=== PATIENT | female | born 1955 | race Caucasian/White ===

== ENCOUNTER 2022-02-02 11:38 | Inpatient (IN) | payer OTHER ==
[~2022-02-02] VITALS: Ht 157.5 cm; Wt 61.2 kg
[2022-02-02 11:38] VITALS: BP_SYST 146
[2022-02-02 12:06] LABS: BASOPHILS # (AUTO) 0.1 K/uL (0.0-0.2); BASOPHILS % (AUTO) 0.9 % (0.0-2.0); EOSINOPHILS % (AUTO) 0.2 % (0.0-4.0); HEMATOCRIT 36.2 % (36-48); HEMOGLOBIN 12.5 g/dL (12.0-16.0); LYMPHOCYTES # (AUTO) 0.7 K/uL (1.0-5.5); LYMPHOCYTES % (AUTO) 4.2 % (20.5-51.5); MEAN CORPUSCULAR HEMOGLOBIN 30 pg (27-31); MEAN CORPUSCULAR HGB CONC 35 % (32-36); MEAN CORPUSCULAR VOLUME 86 fL (79.0-98.0); MONOCYTES # (AUTO) 0.7 K/uL (0.0-1.0); MONOCYTES % (AUTO) 4.3 % (1.7-9.3); NEUTROPHILS # (AUTO) 14.8 K/uL (1.8-7.7); NEUTROPHILS % (AUTO) 90.4 % (40.0-70.0); PLATELET COUNT (AUTO) 169 K/uL (130-430); RED BLOOD CELL COUNT(AUTO) 4.21 MIL/uL (4.2-6.2); RED CELL DISTRIBUTION WIDTH 21.6 % (9.0-15.0); WHITE BLOOD COUNT (AUTO) 16.3 K/uL (4.8-10.8)
[2022-02-02 12:22] LABS: CALCIUM 8.1 mg/dL (8.4-11.0); CREATININE 0.62 mg/dL (0.55-1.30); POTASSIUM 3.5 mmol/L (3.5-5.1)
[2022-02-02 12:24] LABS: INR 1.5 (0.8-1.2); PROTHROMBIN TIME 15.2 SECS (9.5-12.5)
[2022-02-02 13:07] LABS: BILIRUBIN,URINE NEGATIVE (NEGATIVE); BLOOD, URINE 3+ (NEGATIVE); COLOR,URINE YELLOW (YELLOW); GLUCOSE,URINE NEGATIVE (NEGATIVE); KETONES,URINE NEGATIVE (NEGATIVE); LEUKOCYTE ESTERASE ,URINE 2+ (NEGATIVE); NITRITE, URINE POSITIVE (NEGATIVE); PROTEIN URINE NEGATIVE (NEGATIVE)
[2022-02-02 13:11] LABS: CLARITY/URINE HAZY (CLEAR)
[2022-02-02] MEDS ORDERED: IBUPROFEN 800 MG TABLET PO ONE (13:45)
[2022-02-02] MEDS ORDERED: PIPERACILLIN/TAZO 4.5GM/DEX-IS 100 ML IV SCH ×2 (13:45→13:46)
[2022-02-02 14:06] LABS: BACTERIA,URINE MANY /HPF (None Seen)
[2022-02-02] MEDS ORDERED: KCL 20 mEq in D5NS 1000 mL 1,000 ML IV SCH (14:15)
[2022-02-02] MEDS ORDERED: ACET325T53 PO (15:43)
[2022-02-02] MEDS ORDERED: FLUO60TA PO (15:47)
[2022-02-02] MEDS ORDERED: FLUO20CA42 PO (15:47)
[2022-02-02] MEDS ORDERED: GABA300S PO (15:48)
[2022-02-02] MEDS ORDERED: LEVE500T9 PO (15:49)
[2022-02-02] MEDS ORDERED: FURO-149 PO (15:49)
[2022-02-02] MEDS ORDERED: SYN50 PO (15:52)
[2022-02-02] MEDS ORDERED: MOM PO (15:53)
[2022-02-02] MEDS ORDERED: PANT40SU2 PO (15:54)
[2022-02-02] MEDS ORDERED: RIFA550T5 PO (15:58)
[2022-02-02] MEDS ORDERED: SPIR50TA PO (16:04)
[2022-02-02 17:43] VITALS: BP_SYST 102
[2022-02-02 17:48] VITALS: BP_SYST 102
[2022-02-02] MEDS ORDERED: MILK OF MAGNESIA 30 ML UDC PO PRN (18:15)
[2022-02-02] MEDS ORDERED: ONDANSETRON HCL 4 MG/2 ML VIAL IVP PRN (18:30)
[2022-02-02] MEDS ORDERED: ACETAMINOPHEN 325 MG TABLET PO PRN (18:30)
[2022-02-02] MEDS: KCL 20 mEq in D5NS 1000 mL 1,000 ML IV SCH (20:08)
[2022-02-02] MEDS: cefTRIAXone 1 GM in D5W 50 ML IV SCH (20:08)
[2022-02-02 21:19] VITALS: BP_SYST 105
[2022-02-02] MEDS: RIFAXIMIN 550 MG TABLET PO SCH (21:23)
[2022-02-02] MEDS: levETIRAcetam 500 MG TABLET PO SCH (21:24)
[2022-02-02] MEDS: traMADol HCL HCL 50 MG TABLET (ULTRAM) PO PRN (21:24)
[2022-02-03 00:52] VITALS: BP_SYST 109
[2022-02-03] MEDS: LEVOTHYROXINE SODIUM 0.05 MG TABLET PO SCH (06:20)
[2022-02-03 06:41] LABS: HEMATOCRIT 33.9 % (36-48); HEMOGLOBIN 11.4 g/dL (12.0-16.0); MEAN CORPUSCULAR HEMOGLOBIN 30 pg (27-31); MEAN CORPUSCULAR HGB CONC 34 % (32-36); MEAN CORPUSCULAR VOLUME 87 fL (79.0-98.0); PLATELET COUNT (AUTO) 144 K/uL (130-430); RED BLOOD CELL COUNT(AUTO) 3.87 MIL/uL (4.2-6.2); RED CELL DISTRIBUTION WIDTH 22.5 % (9.0-15.0); WHITE BLOOD COUNT (AUTO) 12.2 K/uL (4.8-10.8)
[2022-02-03 07:10] LABS: CREATININE 0.67 mg/dL (0.55-1.30)
[2022-02-03 08:16] VITALS: BP_SYST 131
[2022-02-03] MEDS ORDERED: NON-FORMULARY MEDICATION (Gabapentin 300 MG) PO SCH (09:00)
[2022-02-03 12:00] VITALS: BP_SYST 130
[2022-02-03] MEDS: GABAPENTIN 300 MG CAPSULE PO SCH (13:03)
[2022-02-03] MEDS: FLUoxetine HCL 20 MG CAPSULE (PROzac) PO SCH (13:03)
[2022-02-03] MEDS: FUROSEMIDE 40 MG TABLET PO SCH (13:03)
[2022-02-03] MEDS: RIFAXIMIN 550 MG TABLET PO SCH ×2 (13:03→21:13)
[2022-02-03] MEDS: LANSOPRAZOLE 30 MG CAPSULE.DR PO SCH (13:04)
[2022-02-03] MEDS: levETIRAcetam 500 MG TABLET PO SCH ×2 (13:04→21:13)
[2022-02-03] MEDS: SPIRONOLACTONE 50 MG TABLET (ALDACTONE) PO SCH (13:04)
[2022-02-03] MEDS: KCL 20 mEq in D5NS 1000 mL 1,000 ML IV SCH (13:08)
[2022-02-03 14:36] LABS: LYMPHOCYTES % (MANUAL) 6 % (20-46)
[2022-02-03 14:37] LABS: BASOPHILS % (MANUAL) 0 % (0-2); EOSINOPHILS % (MANUAL) 4 % (0-7); MONOCYTES % (MANUAL) 4 % (0-11)
[2022-02-03] MEDS ORDERED: POTASSIUM CHLORIDE 20 MEQ TAB.PRT.SR PO ONE (15:30)
[2022-02-03 17:36] VITALS: BP_SYST 128
[2022-02-03 21:00] VITALS: BP_SYST 124
[2022-02-03] MEDS: cefTRIAXone 1 GM in D5W 50 ML IV SCH (21:13)
[2022-02-03] MEDS: traMADol HCL HCL 50 MG TABLET (ULTRAM) PO PRN (22:42)
[2022-02-04] VITALS (13 sets, daily range): BP systolic 92–130
[2022-02-04] MEDS: KCL 20 mEq in D5NS 1000 mL 1,000 ML IV SCH ×2 (04:08→21:12)
[2022-02-04] MEDS: LEVOTHYROXINE SODIUM 0.05 MG TABLET PO SCH (06:20)
[2022-02-04 06:38] LABS: BASOPHILS # (AUTO) 0.2 K/uL (0.0-0.2); BASOPHILS % (AUTO) 0.9 % (0.0-2.0); EOSINOPHILS % (AUTO) 0.1 % (0.0-4.0); HEMATOCRIT 36.8 % (36-48); HEMOGLOBIN 12.4 g/dL (12.0-16.0); LYMPHOCYTES % (AUTO) 4.9 % (20.5-51.5); MEAN CORPUSCULAR HEMOGLOBIN 30 pg (27-31); MEAN CORPUSCULAR HGB CONC 34 % (32-36); MEAN CORPUSCULAR VOLUME 88 fL (79.0-98.0); MONOCYTES # (AUTO) 0.8 K/uL (0.0-1.0); MONOCYTES % (AUTO) 4.1 % (1.7-9.3); NEUTROPHILS # (AUTO) 17.5 K/uL (1.8-7.7); PLATELET COUNT (AUTO) 161 K/uL (130-430); RED CELL DISTRIBUTION WIDTH 22.3 % (9.0-15.0); WHITE BLOOD COUNT (AUTO) 19.5 K/uL (4.8-10.8)
[2022-02-04 07:19] LABS: CALCIUM 7.9 mg/dL (8.4-11.0); CREATININE 0.76 mg/dL (0.55-1.30); PHOSPHORUS 2.7 mg/dL (2.7-4.5)
[2022-02-04] MEDS: GABAPENTIN 300 MG CAPSULE PO SCH (08:43)
[2022-02-04] MEDS: LANSOPRAZOLE 30 MG CAPSULE.DR PO SCH (08:43)
[2022-02-04] MEDS: levETIRAcetam 500 MG TABLET PO SCH ×2 (08:43→21:13)
[2022-02-04] MEDS: SPIRONOLACTONE 50 MG TABLET (ALDACTONE) PO SCH (08:44)
[2022-02-04] MEDS: FUROSEMIDE 40 MG TABLET PO SCH (08:44)
[2022-02-04] MEDS: RIFAXIMIN 550 MG TABLET PO SCH ×2 (08:44→21:13)
[2022-02-04] MEDS: FLUoxetine HCL 20 MG CAPSULE (PROzac) PO SCH (08:59)
[2022-02-04] MEDS: traMADol HCL HCL 50 MG TABLET (ULTRAM) PO PRN ×2 (09:00→17:10)
[2022-02-04] MEDS: ALBUMIN HUMAN 25% 100 ML IV SCH ×3 (13:36→20:10)
[2022-02-04] MEDS ORDERED: *TPN PER PHARMACY XX PRN (14:00)
[2022-02-04] MEDS ORDERED: LEVOTHYROXINE SODIUM 0.05 MG TABLET PO SCH (15:52)
[2022-02-04] MEDS: PIPERACILLIN/TAZO 3.375/DEX-IS 50 ML IV SCH ×2 (16:10→21:13)
[2022-02-04] MEDS: VANCOMYCIN HCL 1,000 MG in NS 250 ML IV SCH (16:53)
[2022-02-04] MEDS ORDERED: MORPHINE 2 MG/ML INJ. SYRINGE IVP PRN (20:15)
[2022-02-04] MEDS ORDERED: DEXMEDETOMIDINE HCL 400 MCG in NS 96 ML IV PRN (21:00)
[2022-02-04] MEDS ORDERED: DEXMEDETOMIDINE HCL 200 MCG/2 ML VIAL IV ONE (21:10)
[2022-02-04] MEDS: LORazepam 2 MG/ML VIAL IVP PRN (21:23)
[2022-02-05] VITALS (11 sets, daily range): BP systolic 0–128
[2022-02-05] MEDS: PIPERACILLIN/TAZO 3.375/DEX-IS 50 ML IV SCH (03:46)
[2022-02-05] MEDS: VANCOMYCIN HCL 1,000 MG in NS 250 ML IV SCH (05:36)
[2022-02-05] MEDS: LORazepam 2 MG/ML VIAL IVP PRN (06:58)
[2022-02-05] MEDS ORDERED: HYDROmorphone 1 MG/ML INJ. CARTRIDGE IVP ONE (07:00)
[2022-02-05] MEDS ORDERED: LEVOTHYROXINE SODIUM 0.05 MG TABLET PO SCH (07:00)
[2022-02-05 07:28] LABS: ALBUMIN 2.6 g/dL (3.4-4.8); CALCIUM 8.2 mg/dL (8.4-11.0); CREATININE 0.68 mg/dL (0.55-1.30); POTASSIUM 3.5 mmol/L (3.5-5.1); TOTAL BILIRUBIN 3.4 mg/dL (0.0-1.0)
[2022-02-05] MEDS ORDERED: LORazepam 2 MG/ML VIAL IV PRN (08:15)
[2022-02-05] MEDS ORDERED: NALOXONE HCL 0.4 MG/ML AMP (NARCAN) IVP PRN ×2 (08:15)
[2022-02-05] MEDS ORDERED: HYDROmorphone 1 MG/ML INJ. CARTRIDGE IVP PRN (08:15)
[2022-02-05] MEDS ORDERED: MORPHINE SULFATE IN 0.9 % NACL 100 ML IV PRN (08:15)
[2022-02-07] MEDS ORDERED: LEVOTHYROXINE SODIUM 0.075 MG TABLET PO SCH (07:00)
== END 2022-02-05 08:33 | DRG 720 ==
LOC: SED 11:38 → SMU 14:13 → SIC 02-04 12:47
PROVIDERS: ADMIT Family Medicine; ATTEND Family Medicine
PROC: 0W9G3ZZ Drainage of Peritoneal Cavity, Percutaneous Approach (ICD-10-PCS; principal; 2022-02-03)
PROC: 0W9B3ZZ Drainage of Left Pleural Cavity, Percutaneous Approach (ICD-10-PCS; 2022-02-04)
PROC: 5A09357 Assistance with Respiratory Ventilation, Less than 24 Consecutive Hours, Continuous Positive Airway Pressure (ICD-10-PCS; 2022-02-04)
DX: A41.9 Sepsis, unspecified organism (principal); J96.01 Acute respiratory failure with hypoxia; J18.9 Pneumonia, unspecified organism; J90 Pleural effusion, not elsewhere classified; R18.8 Other ascites; K74.60 Unspecified cirrhosis of liver; B18.1 Chronic viral hepatitis B without delta-agent; N39.0 Urinary tract infection, site not specified; G89.29 Other chronic pain; Z66 Do not resuscitate; M54.9 Dorsalgia, unspecified; Z20.822 Contact with and (suspected) exposure to COVID-19; Z88.5 Allergy status to narcotic agent; Z79.899 Other long term (current) drug therapy
CPT/HCPCS: 32555; 36415; 36600; 49083; 71045; 76376; 80048; 80053; 81000; 82150; 82803-TC; 83605; 83690; 83735; 84100; 85007; 85025; 85027; 85610-TC; 85730-TC; 86705; 86709; 87040; 87070-TC; 87081; 87086; 87340; 93005; 94660; 96365; 96367; 99285; J0696; J1170; J1956; J2060; J2543; J3370; J7050; J7060